=== PATIENT | female | born 2000 | race Caucasian/White ===

== ENCOUNTER 2019-12-14 16:06 | Outpatient (REF) | payer OTHER, SELFPAY | END 2019-12-14 16:07 | disposition home or self-care (01) | LOC: HO.LAB 16:06 | PROVIDERS: PCP Nurse Practitioner Family; Visit Provider Internal Medicine | DX: Z20.828 Contact with and (suspected) exposure to other viral communicable diseases (principal) | CPT/HCPCS: 36415; 87635 ==